=== PATIENT | male | born 1955 | race Caucasian/White ===

== ENCOUNTER → 2018-05-22 10:52 | Outpatient (CLI) | payer OTHER | END | disposition home or self-care (01) | LOC: D.RAD 10:52 | DX: A15.9 Respiratory tuberculosis unspecified (principal) ==

== ENCOUNTER → 2020-01-13 12:31 | Outpatient (CLI) | payer OTHER | END | disposition home or self-care (01) | LOC: D.RAD 12:31 | PROVIDERS: ATTEND Internal Medicine Infectious Disease | DX: A15.9 Respiratory tuberculosis unspecified (principal) ==